=== PATIENT | female | born 1980 | race Caucasian/White ===

== ENCOUNTER 2020-06-22 00:31 | Emergency (ER) | payer OTHER ==
[2020-06-22 00:54] VITALS: TEMP 98.6
--- NOTE | 2020-06-22 00:55 | ED ---
Arrhythmia/Palpitations HPI - General Chief Complaint: Arrhythmia/Palpitations Stated Complaint: Arrhythmia Time Seen by Provider: 06/22/20 00:43 Source: patient, EMS Mode of arrival: EMS Limitations: no limitations - History of Present Illness MD Complaint: palpitations Onset/Timin -: hour(s) Context: occurred during rest Arrhythmia History: atrial fibrillation Associated Symptoms: chest pain, anxiety - Related Data Allergies Allergy/AdvReac Type Severity Reaction Status Date / Time No Known Allergies Allergy Verified 06/22/20 00:40 Review of Systems ROS Statement: Those systems with pertinent positive or pertinent negative responses have been documented in the HPI. ROS Other: All systems not noted in ROS Statement are negative. Constitutional: Denies: fever, chills Respiratory: Denies: cough, dyspnea Cardiovascular: Reports: chest pain, palpitations. Denies: orthopnea, edema, syncope Gastrointestinal: Denies: abdominal pain, vomiting, diarrhea Genitourinary: Denies: dysuria Musculoskeletal: Denies: back pain Skin: Denies: rash Neurological: Denies: headache, weakness, numbness Psychiatric: Reports: anxiety Past Medical History Past Medical History: Supraventricular Tachycardia (SVT) History of Any Multi-Drug Resistant Organisms: None Reported Past Surgical History: No Surgical Hx Reported Past Psychological History: Depression Smoking Status: Former smoker Past Alcohol Use History: None Reported Past Drug Use History: Marijuana General Exam Limitations: no limitations General appearance: alert, in no apparent distress Head exam: Present: atraumatic, normocephalic Eye exam: Present: normal appearance. Absent: scleral icterus, conjunctival injection ENT exam: Present: normal oropharynx Neck exam: Present: normal inspection Respiratory exam: Present: normal lung sounds bilaterally. Absent: respiratory distress, wheezes, rales, rhonchi, stridor Cardiovascular Exam: Present: tachycardia, irregular rhythm, normal heart sounds. Absent: systolic murmur, diastolic murmur, rubs, gallop GI/Abdominal exam: Present: soft. Absent: distended, tenderness, guarding, rebound, rigid, mass Extremities exam: Present: normal inspection, normal capillary refill. Absent: pedal edema, calf tenderness Back exam: Present: normal inspection. Absent: CVA tenderness (R), CVA tenderness (L) Neurological exam: Present: alert Skin exam: Present: warm, dry, intact, normal color. Absent: rash Course Vital Signs 06/22/20 06/22/20 06/22/20 00:34 00:54 02:01 Temperature 98.6 F Pulse Rate 110 H 132 H Respiratory 18 18 Rate Blood Pressure 114/73 90/58 O2 Sat by Pulse 98 98 Oximetry 06/22/20 02:50 Temperature Pulse Rate 98 Respiratory Rate Blood Pressure O2 Sat by Pulse Oximetry EKG Findings - EKG Results: EKG: interpreted by ERMD, normal axis, normal QRS EKG shows: tachycardia (Rate approximately 119 bpm), atrial fibrillation - Blocks, [place], Hypertrophy, ST Abn: Repolarization changes or abnormalities: nonspecific abnormality, ST segment, and/or T wave Medical Decision Making - Medical Decision Making The patient's rhythm did appear to revert to sinus rhythm on the monitor. ECG was performed which showed normal sinus rhythm, rate 71 bpm. Intervals normal, axis normal area no ST or T-wave changes. I discussed this with the patient who states she has been feeling well throughout her course in emergency department. At this point she would like to go home. 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 She will return if any symptoms recur or if any new symptoms develop. - Lab Data Result diagrams: 06/22/20 00:56 06/22/20 00:56 Lab Results 06/22/20 06/22/20 06/22/20 Range/Units 00:56 00:56 00:56 WBC 7.3 (3.8-10.6) k/uL RBC 4.50 (3.80-5.40) m/uL Hgb 13.4 (11.4-16.0) gm/dL Hct 39.1 (34.0-46.0) % MCV 86.9 (80.0-100.0) fL MCH 29.7 (25.0-35.0) pg MCHC 34.2 (31.0-37.0) g/dL RDW 12.1 (11.5-15.5) % Plt Count 201 (150-450) k/uL MPV 8.7 Neutrophils % 46 % Lymphocytes % 44 % Monocytes % 5 % Eosinophils % 3 % Basophils % 1 % Neutrophils # 3.3 (1.3-7.7) k/uL Lymphocytes # 3.2 (1.0-4.8) k/uL Monocytes # 0.3 (0-1.0) k/uL Eosinophils # 0.2 (0-0.7) k/uL Basophils # 0.1 (0-0.2) k/uL PT 10.6 (9.0-12.0) sec INR 1.0 (<1.2) APTT 25.1 (22.0-30.0) sec Sodium 137 (137-145) mmol/L Potassium 3.7 (3.5-5.1) mmol/L Chloride 108 H (98-107) mmol/L Carbon Dioxide 21 L (22-30) mmol/L Anion Gap 8 mmol/L BUN 15 (7-17) mg/dL Creatinine 0.72 (0.52-1.04) mg/dL Est GFR (CKD-EPI)AfAm >90 (>60 ml/min/1.73 sqM) Est GFR (CKD-EPI)NonAf >90 (>60 ml/min/1.73 sqM) Glucose 100 H (74-99) mg/dL Calcium 9.2 (8.4-10.2) mg/dL Magnesium 1.9 (1.6-2.3) mg/dL Total Bilirubin 0.4 (0.2-1.3) mg/dL AST 28 (14-36) U/L ALT 29 (4-34) U/L Alkaline Phosphatase 86 (38-126) U/L Troponin I (0.000-0.034) ng/mL Total Protein 6.7 (6.3-8.2) g/dL Albumin 4.0 (3.5-5.0) g/dL TSH 2.770 (0.465-4.680) mIU/L 06/22/20 Range/Units 00:56 WBC (3.8-10.6) k/uL RBC (3.80-5.40) m/uL Hgb (11.4-16.0) gm/dL Hct (34.0-46.0) % MCV (80.0-100.0) fL MCH (25.0-35.0) pg MCHC (31.0-37.0) g/dL RDW (11.5-15.5) % Plt Count (150-450) k/uL MPV Neutrophils % % Lymphocytes % % Monocytes % % Eosinophils % % Basophils % % Neutrophils # (1.3-7.7) k/uL Lymphocytes # (1.0-4.8) k/uL Monocytes # (0-1.0) k/uL Eosinophils # (0-0.7) k/uL Basophils # (0-0.2) k/uL PT (9.0-12.0) sec INR (<1.2) APTT (22.0-30.0) sec Sodium (137-145) mmol/L Potassium (3.5-5.1) mmol/L Chloride (98-107) mmol/L Carbon Dioxide (22-30) mmol/L Anion Gap mmol/L BUN (7-17) mg/dL Creatinine (0.52-1.04) mg/dL Est GFR (CKD-EPI)AfAm (>60 ml/min/1.73 sqM) Est GFR (CKD-EPI)NonAf (>60 ml/min/1.73 sqM) Glucose (74-99) mg/dL Calcium (8.4-10.2) mg/dL Magnesium (1.6-2.3) mg/dL Total Bilirubin (0.2-1.3) mg/dL AST (14-36) U/L ALT (4-34) U/L Alkaline Phosphatase (38-126) U/L Troponin I <0.012 (0.000-0.034) ng/mL Total Protein (6.3-8.2) g/dL Albumin (3.5-5.0) g/dL TSH (0.465-4.680) mIU/L Disposition Clinical Impression: Atrial fibrillation with rapid ventricular response Disposition: HOME SELF-CARE Condition: Good Is patient prescribed a controlled substance at d/c from ED?: No
[2020-06-22] MEDS ORDERED: FLECAINIDE 50 MG TAB PO ONE (01:00)
[2020-06-22 01:16] LABS: Basophils # (A) 0.1 k/uL (0-0.2); Basophils % (A) 1 %; Eosinophils # (A) 0.2 k/uL (0-0.7); Eosinophils % (A) 3 %; HCT 39.1 % (34.0-46.0); HGB 13.4 gm/dL (11.4-16.0); Lymphocytes # (A) 3.2 k/uL (1.0-4.8); Lymphocytes % (A) 44 %; MCH 29.7 pg (25.0-35.0); MCHC 34.2 g/dL (31.0-37.0); MCV 86.9 fL (80.0-100.0); Mean Platelet Volume 8.7; Monocytes # (A) 0.3 k/uL (0-1.0); Monocytes % (A) 5 %; Neutrophils # (A) 3.3 k/uL (1.3-7.7); Neutrophils % (A) 46 %; Platelet Count 201 k/uL (150-450); RDW 12.1 % (11.5-15.5); WBC 7.3 k/uL (3.8-10.6)
--- NOTE | 2020-06-22 01:16 | XR ---
EXAM: XR Chest, 1 View CLINICAL HISTORY: ITS.REASON XR Reason: dysrhythmia TECHNIQUE: Frontal view of the chest. COMPARISON: No relevant prior studies available. FINDINGS: Lungs: Hypoventilatory lungs. Bilateral volume loss. Pleural space: No significant abnormality. No pneumothorax. Heart: No significant abnormality. No cardiomegaly. Mediastinum: No significant abnormality. Bones/joints: No acute osseous abnormality. IMPRESSION: Hypoventilatory lungs with bilateral atelectasis. An infectious or inflammatory process is not excluded.
[2020-06-22 01:29] LABS: ALT 29 U/L (4-34); AST 28 U/L (14-36); African American GFR (CKD) >90 (>60 ml/min/1.73 sqM); Alkaline Phosphatase 86 U/L (38-126); Anion Gap 8 mmol/L; Blood Urea Nitrogen 15 mg/dL (7-17); Calcium 9.2 mg/dL (8.4-10.2); Carbon Dioxide 21 mmol/L (22-30); Chloride 108 mmol/L (98-107); Glucose 100 mg/dL (74-99); Magnesium 1.9 mg/dL (1.6-2.3); Non-African American GFR(CKD) >90 (>60 ml/min/1.73 sqM); Partial Thromboplastin Time 25.1 sec (22.0-30.0); Potassium 3.7 mmol/L (3.5-5.1); Prothrombin Time 10.6 sec (9.0-12.0); Sodium 137 mmol/L (137-145); Total Bilirubin 0.4 mg/dL (0.2-1.3); Total Protein 6.7 g/dL (6.3-8.2)
[2020-06-22] MEDS ORDERED: ACETAMINOPHEN TAB 325 MG TAB PO STA (01:56)
[2020-06-22] MEDS ORDERED: SODIUM CHLORIDE 0.9% 1,000 ML IV ONE (02:00)
[2020-06-22] MEDS ORDERED: DILTIAZEM DRIP BOLUS FROM BAG 1 MG SOLN IV ONE (03:31)
[2020-06-22] MEDS ORDERED: DILTIAZEM 125 MG in SODIUM CHLORIDE 0.9% 100 ML IV SCH (03:45)
[2020-06-22] MEDS ORDERED: NITROGLYCERIN SL TABS 0.4 MG TAB SUBLINGUAL PRN (04:13)
[2020-06-22] MEDS ORDERED: SODIUM CHLORIDE 0.9% 1,000 ML IV STA (04:15)
[2020-06-22 05:10] VITALS: BP 105/66; PULSE 70; RESP 16
[2020-06-23] MEDS ORDERED: ASPIRIN 325 MG TAB PO SCH (09:00)
== END 2020-06-22 05:15 | disposition home or self-care (01) ==
LOC: EC 00:31 → 3SCARD 04:13 → UNDOADMIN 04:13 → EC 05:15
DX: I48.91 Unspecified atrial fibrillation (principal); Z87.891 Personal history of nicotine dependence; F12.90 Cannabis use, unspecified, uncomplicated; F32.9 Major depressive disorder, single episode, unspecified
CPT/HCPCS: 36415; 71045; 80053; 83735; 84443; 84484; 85025; 85610; 85730; 93005; 96360; 99285

== ENCOUNTER → 2020-11-25 | Outpatient (CLI) | payer OTHER ==
[2020-11-25 09:02] VITALS: BP 105/67; PULSE 56; RESP 16; TEMP 98.5
--- NOTE | 2020-11-25 10:13 | P.HPOB ---
History of Present Illness H&P Date: 11/25/20 Chief Complaint: The patient is here for her routine gynecologic exam and ma mmogram. This is a 40-year-old with an LMP of 11/05/2020. The patient is here to establish with this office. It has been about 2-3 years since her last pelvic exam. 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 She has been experiencing some left pelvic discomfort midcycle for the last several months. This can also lead to dyspareunia around those times. She recently had some discomfort the last few days and she is mid cycle. She has also noticed some thick whitish vaginal discharge with some mild vulvar pruritus. She denies odor. Review of Systems The patient has lost 50 pounds over the last year. She has been trying to lose weight with dietary changes and exercise. She is training for marathons. She denies respiratory or cardiac problems. GI: Occasional constipation. Past Medical History Past Medical History: Supraventricular Tachycardia (SVT) Additional Past Medical History / Comment(s): SVT with rapid atrial response. 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 She has no other history of STDs. She states she tested negative for BRCA(through [facility] [address] [facility]) History of Any Multi-Drug Resistant Organisms: None Reported Past Surgical History: No Surgical Hx Reported Past Psychological History: Anxiety, Depression Smoking Status: Former smoker Past Alcohol Use History: None Reported Additional Past Alcohol Use History / Comment(s): Quit smoking in 2009. Past Drug Use History: Marijuana Additional Drug Use History / Comment(s): Uses marijuana daily. - Past Family History Mother Family Medical History: Liver Disease Additional Family Medical History / Comment(s): Maternal aunt had breast cancer. Father Additional Family Medical History / Comment(s): Paternal uncle and aunt have diabetes. Brother(s) Additional Family Medical History / Comment(s): SLE Medications and Allergies Home Medications Medication Instructions Recorded Confirmed Type Aspirin 81 mg PO DAILY 11/25/20 11/25/20 History Biotin [Biotin Disolve] 5,000 mcg PO DAILY 11/25/20 11/25/20 History Cholecalciferol [Vitamin D3 (25 50 mcg PO DAILY 11/25/20 11/25/20 History Mcg = 1000 Iu)] Cyanocobalamin (Vitamin B-12) 1,000 mcg PO DAILY 11/25/20 11/25/20 History [Vitamin B-12] Diltiazem Cd [Cardizem CD] 120 mg PO DAILY 11/25/20 11/25/20 History Ergocalciferol [Vitamin D2 (1250 1,250 mcg PO WEEKLY 11/25/20 11/25/20 History Mcg = 01265 Iu)] Flaxseed Oil 1,000 mg PO DAILY 11/25/20 11/25/20 History Flecainide [Tambocor] 50 mg PO Q12HR 11/25/20 11/25/20 History Montelukast [Singulair] 10 mg PO DAILY 11/25/20 11/25/20 History [place]-3 Fatty Acids/Fish Oil [Fish 1 each PO DAILY 11/25/20 11/25/20 History Oil 1,000 mg Softgel] Zinc 50 mg PO DAILY 11/25/20 11/25/20 History Allergies Allergy/AdvReac Type Severity Reaction Status Date / Time No Known Allergies Allergy Verified 11/25/20 08:57 Exam Vital Signs Temp Pulse Resp BP Pulse Ox 11/25/20 08:58 98.5 F 56 L 16 105/67 97 Intake and Output 11/24/20 11/25/20 11/25/20 22:59 06:59 14:59 Other: Weight 85.275 kg Height 5 feet 7 inches, weight 188 pounds, BMI 29.4. This is a well-developed well-nourished female who is alert and oriented times 3 in no acute distress. The patient has multiple tattoos. HEENT: Within normal limits. NECK: Supple without mass or thyromegaly. CHEST AND LUNGS: Clear to auscultation. HEART: Regular rate and rhythm. BREASTS: Are without mass or discharge. AXILLARY EXAM: Negative for adenopathy. BACK: Negative for CVA tenderness. ABDOMEN: Soft, nontender, without palpable masses. PELVIC EXAM: Normal external genitalia. Cervix and vagina reveals moderate thick chunky white discharge without odor. Vagina and cervix are otherwise unremarkable. There is no evidence of prolapse. The uterus is midposition, nongravid size and nontender. There are no palpable adnexal masses or tenderness. RECTAL EXAM: negative for mass or tenderness and is negative for occult blood. EXTREMITIES: Nontender. IMPRESSION: 1. 40-year-old female with midcycle left pelvic pains with no significant tenderness on exam today.. 2. Vaginal discharge with vulvar pruritus consistent with Ayse vaginitis. PLAN: 1. Pap smear cotest was performed. 2. Self breast awareness was discussed with the patient. We have also discussed symptoms associated with inflammatory breast cancer. 3. Affirm vaginitis panel was obtained from the vagina. GC and chlamydia testing was also obtained from the cervix. 4. Ultrasound was recommended and the order slip was given to the patient for this. 5. Diflucan 150 mg by mouth once. There will be one refill. The electronic perception will be sent to [facility] pharmacy on [facility]. 6. She has completed her Covid vaccination series. 7. She was advised to return in one year for her annual well woman exam and as needed.
--- NOTE | 2020-11-26 12:37 | MM ---
Reason for exam: screening (asymptomatic). History: Patient had first child at age 35. Family history of breast cancer in 3 paternal aunts. Physical Findings: A clinical breast exam by your physician is recommended on an annual basis and results should be correlated with mammographic findings. MG Screening Mammo w CAD Bilateral CC and MLO view(s) were taken. The breast tissue is heterogeneously dense. This may lower the sensitivity of mammography. There are benign appearing round, dystrophic calcifications bilaterally. There is no discrete abnormality. ASSESSMENT: Benign, BI-RAD 2 RECOMMENDATION: Routine screening mammogram of both breasts in 1 year.
[2020-11-26 16:21] LABS: C. trachomatis,PCR Negative (Neg,Equiv); Chlamydia trachomatis Source Cervix; N. gonorrhoeae,PCR Negative (Neg,Equiv); Neisseria Source Cervix
[2020-11-26 19:42] LABS: Gardnerella Negative (Negative); Source Vagina; Trichomonas Negative (Negative)
== END ==
LOC: WWCWWP 08:45
PROVIDERS: ATTEND Obstetrics & Gynecology
DX: Z12.31 Encounter for screening mammogram for malignant neoplasm of breast (principal); B37.3 Candidiasis of vulva and vagina; R10.2 Pelvic and perineal pain; Z01.419 Encounter for gynecological examination (general) (routine) without abnormal findings; F41.9 Anxiety disorder, unspecified; F32.9 Major depressive disorder, single episode, unspecified; Z87.891 Personal history of nicotine dependence; Z79.82 Long term (current) use of aspirin; Z80.3 Family history of malignant neoplasm of breast
CPT/HCPCS: 77067; 87480; 87491; 87510; 87591; 87660

== ENCOUNTER → 2020-11-27 | Outpatient (CLI) | payer OTHER ==
--- NOTE | 2020-11-27 08:21 | US ---
EXAMINATION TYPE: US pelvic complete DATE OF EXAM: 11/27/2020 COMPARISON: NONE CLINICAL HISTORY: R10.2 PELVIC PAIN L MID CYCLE. left pelvic pain mid cycle TECHNIQUE: Transabdominal (TA). Date of LMP: 11/02/20 EXAM MEASUREMENTS: Uterus: 7.8 x 3.5 x 4.1 cm Endometrial Stripe: 0.5 cm Right Ovary: 3.5 x 2.1 x 2.2 cm Left Ovary: 3.4 x 2.2 x 2.2 cm 1. Uterus: Anteverted nabothian cyst 2. Endometrium: wnl 3. Right Ovary: follicles noted 4. Left Ovary: follicles noted 5. Bilateral Adnexa: wnl 6. Posterior cul-de-sac: wnl IMPRESSION: No significant abnormality identified.
== END | disposition home or self-care (01) ==
LOC: RADUSWWP 07:49
PROVIDERS: ATTEND Obstetrics & Gynecology
DX: R10.2 Pelvic and perineal pain (principal)
CPT/HCPCS: 76856